=== PATIENT | female | born 1950 | race African-American/Black ===

== ENCOUNTER 2018-03-19 15:10 | Outpatient (CLI) | payer MEDICARE, MEDICAID ==
--- NOTE | 2018-03-19 15:31 | RAD ---
LEFT KNEE 3 VIEWS: Date: 03/19/18 HISTORY: Left knee pain. FINDINGS/IMPRESSION: No fracture, dislocation, or bony destruction is seen. No significant osteophytosis is identified. POS: [facility]
== END 2018-03-19 15:11 | disposition home or self-care (01) ==
LOC: SCSRAD 15:10
PROVIDERS: ATTEND Family Medicine
DX: M25.562 Pain in left knee (principal)

== ENCOUNTER 2018-06-26 13:40 | Outpatient (CLI) | payer MEDICARE, MEDICAID ==
[2018-06-26 15:17] LABS: #Eosinphils 0.3 thou/uL (0.0-0.7); #Lymphocytes 2.8 thou/uL (1.20-3.40); #Monocytes 0.5 thou/uL (0.11-0.59); #Neutrophils 5.2 thou/uL (1.40-6.50); %Basophils 0.5 % (0.0-1.0); %Lymphocytes 31.9 % (21.0-51.0); %Monocytes 5.1 % (0.0-10.0); %Neutrophils 59.5 % (42.0-75.0); Hemoglobin 11.8 g/dL (12.0-16.0); Mean Corpuscular HGB CONC 33.6 g/dL (32.0-36.0); Mean Corpuscular Hemoglobin 29.2 pg (27.0-31.0); Mean Corpuscular Volume 86.8 fL (78.0-98.0); Mean Platelet Volume 6.9 fL (7.4-10.4); Platelet Count 352 thou/uL (130-400); Red Blood Cell (RBC) Count 4.05 mill/uL (4.20-5.40); White Blood Cell (WBC) Count 8.7 thou/uL (4.8-10.8)
[2018-06-26 15:29] LABS: Anion Gap 15 mmol/L (10-20); BUN (Urea Nitrogen) 17 mg/dL (9.8-20.1); Calc. Creatinine Clearance 0 mL/min (70-130); Calcium 9.8 mg/dL (7.8-10.44); Carbon Dioxide 25 mmol/L (23-31); Chloride 104 mmol/L (98-107); Estimated GFR-MDRD 55; Glucose 180 mg/dL (80-115); Potassium 4.1 mmol/L (3.5-5.1); Sodium 140 mmol/L (136-145)
--- NOTE | 2018-06-28 15:12 | EKG ---
Test Reason : Blood Pressure : / mmHG Vent. Rate : 092 BPM Atrial Rate : 092 BPM P-R Int : 200 ms QRS Dur : 070 ms QT Int : 348 ms P-R-T Axes : 052 004 014 degrees QTc Int : 430 ms Normal sinus rhythm Minimal voltage criteria for LVH, may be normal variant Anterior infarct , age undetermined Abnormal ECG Confirmed by LAUREN MENESES MD ([id number]) on 06/28/2018 3:11:44 PM Referred By: PAULA Confirmed By:LAUREN MENESES MD
== END 2018-06-26 13:41 | disposition home or self-care (01) ==
LOC: LABBT 13:40
PROVIDERS: ATTEND Orthopaedic Surgery
DX: Z01.818 Encounter for other preprocedural examination (principal); S83.242A Other tear of medial meniscus, current injury, left knee, initial encounter
CPT/HCPCS: 80048; 85025; 93005; 93010

== ENCOUNTER 2018-07-04 06:51 | Day surgery (SDC) | payer MEDICARE, MEDICAID ==
[2018-06-26 14:01] VITALS: BMI 36.8
[2018-07-04] MEDS ORDERED: PROPOFOL 20 ML ONE (07:57)
[2018-07-04] MEDS ORDERED: Fentanyl 100 MCG/2 ML VIAL ONE ×2 (09:47→10:39)
[2018-07-04] MEDS ORDERED: Morphine 4 MG/ML VIAL ONE (11:12)
[2018-07-04] MEDS ORDERED: Ondansetron ODT 4 MG TAB ONE (12:07)
--- NOTE | 2018-07-04 12:09 | OP ---
PREOPERATIVE DIAGNOSIS: Medial lateral meniscus tear, left knee. POSTOPERATIVE DIAGNOSIS: Medial lateral meniscus tear, left knee. SURGEON: Lalito Saxena M.D. ANESTHESIA: General. BLOOD LOSS: Minimal. SPECIMEN: None. DRAINS: None. COMPLICATIONS: None. FINDINGS AT SURGERY: Partial medial meniscus tear; partial lateral meniscus tear; grade 3 chondromal acia, medial femoral condyle; grade 2 chondromalacia, lateral femoral condyle. PROCEDURE: Arthroscopic partial medial and lateral meniscectomy. After appropriate consent was obtained, the patient was taken to the operating room where general ane sthesia was induced. Left leg was prepped and draped in the usual sterile fashion. No tourniquet wa s used. Scope was placed in the lateral portal and probe was placed in the medial portal. Patellofe moral joint was relatively free of disease. There was a complex tear involving most of the posterior medial meniscus. This was debrided using basket forceps and smoothed using a 4-0 full radius resect or. Meniscus and probe found to be stable. The ACL was intact. Lateral compartment had a tear of m ost of the posterior horn of the lateral meniscus. This was debrided using basket forceps and smooth ed using a 4-0 full radius resector. The knee was then irrigated and drained. Sterile dressings lynda lied.
== END 2018-07-04 13:18 | disposition home or self-care (01) ==
LOC: SDC 06:51
PROVIDERS: ATTEND Orthopaedic Surgery
PROC: 0SBD4ZZ Excision of Left Knee Joint, Percutaneous Endoscopic Approach (ICD-10-PCS; principal; 2018-07-04)
PROC: 0SBD4ZZ Excision of Left Knee Joint, Percutaneous Endoscopic Approach (ICD-10-PCS; 2018-07-04)
DX: S83.282A Other tear of lateral meniscus, current injury, left knee, initial encounter (principal); S83.232A Complex tear of medial meniscus, current injury, left knee, initial encounter; M94.262 Chondromalacia, left knee; E11.9 Type 2 diabetes mellitus without complications; I10 Essential (primary) hypertension; F41.9 Anxiety disorder, unspecified; M19.90 Unspecified osteoarthritis, unspecified site; K21.9 Gastro-esophageal reflux disease without esophagitis; Z79.84 Long term (current) use of oral hypoglycemic drugs; Z79.899 Other long term (current) drug therapy; Z98.890 Other specified postprocedural states
CPT/HCPCS: 29880; 96374 ×2; 97110; 97116; 97139; G8978; G8979; G8980; J2270; J2704; J3010; Q0162

== ENCOUNTER 2019-01-31 08:46 | Outpatient (CLI) | payer MEDICARE, MEDICAID ==
--- NOTE | 2019-01-31 09:28 | ULT ---
ULTRASOUND RENAL BILATERAL STANDARD: Date: 01/31/19 HISTORY: Hematuria. R39.9 hematuria unspecified. COMPARISON: None. TECHNIQUE: Real-time Kramer scale and color evaluation of the kidneys and urinary bladder performed. FINDINGS: The right kidney measures 10.6 x 5.9 x 6.1 cm. The left kidney measures 10.6 x 5.5 x 5.0 cm. There i s a cyst of the inferior pole of the left kidney measuring just over 3.0 cm, which is a simple cyst. The urinary bladder volume is 140 mL. No bladder mass is appreciated. IMPRESSION: Simple cyst left kidney. No evidence of obstructive uropathy. POS: [facility] [place]
== END 2019-01-31 08:47 | disposition home or self-care (01) ==
LOC: BICULT 08:46
PROVIDERS: ATTEND Urology
DX: R31.9 Hematuria, unspecified (principal); N28.1 Cyst of kidney, acquired
CPT/HCPCS: 76770

== ENCOUNTER 2020-02-02 07:20 | Outpatient (CLI) | payer MEDICARE, MEDICAID ==
--- NOTE | 2020-02-02 12:02 | NM ---
RADIONUCLIDE GASTRIC EMPTYING SCAN: HISTORY: Nausea with vomiting, unspecified RADIOPHARMACEUTICAL: 2 mCi technetium 99m sulfur colloid administered orally in scrambled eggs. FINDINGS: Gastric emptying at different times is as follows: 1 hour: 68% 2 hours: 92% 3 hours: 100% The calculated gastric emptying half-time [id number].
== END 2020-02-02 07:21 | disposition home or self-care (01) ==
LOC: NM 07:20
PROVIDERS: ATTEND Internal Medicine Gastroenterology
DX: R11.2 Nausea with vomiting, unspecified (principal)
CPT/HCPCS: 78264; A9541

== ENCOUNTER 2021-02-22 13:57 | Outpatient (CLI) | payer MEDICARE, MEDICAID | END 2021-02-22 13:58 | disposition home or self-care (01) | LOC: BICMAMMO 13:57 | PROVIDERS: ATTEND Family Medicine | DX: Z13.820 Encounter for screening for osteoporosis (principal); Z78.0 Asymptomatic menopausal state | CPT/HCPCS: 77080 ==